=== PATIENT | male | born 1970 | race Hispanic/Latino ===

== ENCOUNTER → 2020-08-26 | Outpatient (CLI) | payer BC | LOC: WCC 15:33 | PROVIDERS: ATTEND Podiatrist | DX: E11.621 Type 2 diabetes mellitus with foot ulcer (principal); E11.628 Type 2 diabetes mellitus with other skin complications; L97.421 Non-pressure chronic ulcer of left heel and midfoot limited to breakdown of skin; L97.521 Non-pressure chronic ulcer of other part of left foot limited to breakdown of skin; R60.0 Localized edema; I87.2 Venous insufficiency (chronic) (peripheral); G99.0 Autonomic neuropathy in diseases classified elsewhere; I10 Essential (primary) hypertension; N28.9 Disorder of kidney and ureter, unspecified; X11.8XXA Contact with other hot tap-water, initial encounter | CPT/HCPCS: 10060; 87071; 87075; 87205 ==